=== PATIENT | female | born 1975 | race Caucasian/White ===

== ENCOUNTER 2020-07-08 17:56 | Emergency (ER) | payer OTHER ==
[~2020-07-08] VITALS: Ht 154.9 cm; Wt 88.5 kg
[~2020-07-08 17:56] MED LIST: FLONASE; IRON; PRENATAL VITAMIN; TRANDATE 200 M200 M1 GT; ZOLOFT 50 MG TA50 M1 PO; ZYRTEC
[2020-07-08 18:42] LABS: ABSOLUTE NEUTROPHILS 5.2 thou/uL (1.4-8.2); BASOPHILS 0.6 % (0.0-2.0); EOSINOPHILS 2.8 % (0.0-3.0); HEMATOCRIT 36.3 % (37.0-47.0); HEMOGLOBIN 12.4 gm/dL (12.0-15.0); LYMPHOCYTES 21.9 % (24.0-44.0); MCH 31.8 pg (26.0-34.0); MCHC 34.3 g/dL (28.0-37.0); MCV 92.8 fL (80.0-100.0); MONOCYTES 5.5 % (1.0-8.0); PLATELET COUNT 238 thou/uL (150-400); POLYS 69.2 % (36.0-66.0); RBC 3.91 mil/uL (4.20-5.00); RDW 15.1 % (10.5-14.5); WBC 7.5 thou/uL (4.0-11.0)
[2020-07-08 18:56] LABS: CALCIUM 9.3 mg/dL (8.5-10.1); CREATININE 1.4 mg/dL (0.6-1.0); POTASSIUM 4.4 mmol/L (3.5-5.1)
[2020-07-08 19:00] LABS: URINE BILIRUBIN NEGATIVE (Negative); URINE BLOOD TRACE (Negative); URINE COLOR YELLOW; URINE GLUCOSE-RANDOM* NEGATIVE (Negative); URINE KETONES NEGATIVE (Negative); URINE LEUKOCYTES-REFLEX NEGATIVE (Negative); URINE PROTEIN (DIPSTICK) 3+ (Negative); URINE SPECIFIC GRAVITY 1.025 (1.005-1.035); URINE UROBILINOGEN 0.2 E.U./dl (0.2-1.0)
[2020-07-08 19:03] LABS: ALBUMIN 3.2 g/dL (3.4-5.0); TOTAL BILIRUBIN 0.3 mg/dL (0.2-1.0); TOTAL PROTEIN 6.8 g/dL (6.4-8.2)
[2020-07-08 19:13] LABS: URINE CLARITY CLOUDY; URINE NITRITE-REFLEX POSITIVE (Negative)
[2020-07-08 19:14] LABS: SQUAMOUS 4-10 Moderate /LPF (0-3); URINE WBC-REFLEX 6-15 Few /HPF (0-5)
[2020-07-08 19:15] LABS: AMORPHOUS URATES Few /LPF (None Seen); BACTERIA-REFLEX >30 Many /HPF (None Seen); CASTS None Seen /LPF (None Seen); URINE RBC 0-2 Rare /HPF (0-2)
[2020-07-08] MEDS ORDERED: KEFLEX500 M1 PO (21:36)
[2020-07-08 22:16] VITALS: BP 123/69
== END 2020-07-08 22:23 | disposition home or self-care (01) ==
LOC: ER 17:56
PROVIDERS: Emergency Medicine
DX: N39.0 Urinary tract infection, site not specified (principal); Z88.0 Allergy status to penicillin; Z79.899 Other long term (current) drug therapy; Z90.49 Acquired absence of other specified parts of digestive tract; Z90.710 Acquired absence of both cervix and uterus